=== PATIENT | male | born 1950 | race Caucasian/White ===

== ENCOUNTER → 2021-05-09 | Outpatient (CLI) | payer MEDICARE, BC ==
--- NOTE | 2021-05-09 17:11 | RAD ---
EXAM: CT CHEST WITHOUT CONTRAST (LDCT LUNG CANCER SCREENING). HISTORY: Risk factors for pulmonary malignancy. History of smoking. TECHNIQUE: CT of the chest was performed without intravenous contrast using a low-dose lung screening protocol. Findings analysis is based on ACR Lung-RADS v1.1. *One or more of the following individual ized dose reduction techniques were utilized for this examination: 1. Automated exposure control. 2. Adjustment of the mA and/or kV according to patient size. 3. Use of iterative reconstruction technique. RADIATION DOSE: DLP: 68 CTDI VOL(per sequence): 1.55 COMPARISON: None.. FINDINGS: Nodules: There is a 6 mm irregular nodular opacity in the right upper lobe (image 137, series 3). No other pulmonary nodules. Other findings: The heart is normal in size. No pericardial effusion. There are coronary artery calci fications. Thoracic aorta is normal in caliber. Mild calcified aortic atherosclerosis. There is a sma ll low right paratracheal lymph node measuring 7 mm short axis. No suspicious lymphadenopathy in the chest. There is mild to moderate centrilobular and paraseptal emphysema. No pleural effusion. Central airways are clear. There is cholelithiasis. Calcified atherosclerosis is seen in the abdominal aorta . IMPRESSION/RECOMMENDATION: 1. 6 mm irregular subpleural nodular opacity in the right upper lobe, possibly scarring or atelectasi s. Recommend 6 month follow-up low-dose CT of the chest. 2. Mild to moderate emphysema. 3. Coronary artery calcifications. 4. Cholelithiasis. ACR Lung-RADS category: 3-probably benign. Recommend follow-up six-month low-dose CT of the chest. Electronically signed by: Oriana Rosado MD (05/09/2021 5:08 PM) [id number]
== END ==
LOC: CT 08:10
PROVIDERS: ATTEND Family Medicine
DX: Z12.2 Encounter for screening for malignant neoplasm of respiratory organs (principal); I25.10 Atherosclerotic heart disease of native coronary artery without angina pectoris; J43.9 Emphysema, unspecified; I70.0 Atherosclerosis of aorta; K80.20 Calculus of gallbladder without cholecystitis without obstruction; Z87.891 Personal history of nicotine dependence
CPT/HCPCS: 71271